=== PATIENT | female | born 1985 | race Caucasian/White ===

== ENCOUNTER 2017-11-05 22:54 | Emergency (ER) | payer BC, OTHER ==
[~2017-11-05] VITALS: Ht 165.1 cm; Wt 90.7 kg
[2017-11-05] MEDS ORDERED: ACETAMINOPHEN ES 500 MG TABLET PO ONE (23:15)
[2017-11-05] MEDS ORDERED: ACETAMINOPHEN ES 500 MG TABLET ONE (23:38)
--- NOTE | 2017-11-06 00:22 | NUR ---
Patient discharged to home in stable conditon. Written and verbal after care instructions given. Patient verbalizes understanding of instructions. Ambulated from ER with stable gait. All belongings with patient.
[2017-11-06 00:24] VITALS: BP 121/83
== END 2017-11-06 00:24 | disposition home or self-care (01) ==
LOC: ER 22:54
DX: J02.9 Acute pharyngitis, unspecified (principal); R09.82 Postnasal drip
CPT/HCPCS: 36415; 71010; 86403; 87070; 99285; A4663

== ENCOUNTER 2018-03-18 19:49 | Emergency (ER) | payer BC, OTHER ==
[~2018-03-18] VITALS: Ht 165.1 cm; Wt 93.0 kg
--- NOTE | 2018-03-18 20:55 | NUR ---
Dr. Haynes at bedside for MSE.
[2018-03-18] MEDS ORDERED: TETRACAINE HCL 0.5% OPHT DROP 2 ML BOTTLE OP ONE (21:00)
[2018-03-18] MEDS ORDERED: FLUORESCEIN SODIUM 1 MG STRIP OP ONE (21:00)
[2018-03-18] MEDS ORDERED: FLUORESCEIN SODIUM 1 MG STRIP ONE (21:06)
[2018-03-18] MEDS ORDERED: TETRACAINE HCL 0.5% OPHT DROP 2 ML BOTTLE ONE (21:08)
--- NOTE | 2018-03-18 21:58 | NUR ---
Patient discharged to home in stable conditon. Written and verbal after care instructions given. Patient verbalizes understanding of instructions. Patient ambulated out of ER with steady gait, no acute signs of distress, VSS, all belongings taken.
[2018-03-18 22:01] VITALS: BP 119/78
== END 2018-03-18 21:55 | disposition home or self-care (01) ==
LOC: ER 19:51
DX: H10.9 Unspecified conjunctivitis (principal)
CPT/HCPCS: A4663